=== PATIENT | female | born 1960 | race Caucasian/White ===

== ENCOUNTER → 2018-12-27 | Emergency (ER) | payer OTHER ==
[~2018-12-27] VITALS: Ht 170.2 cm; Wt 63.5 kg
[~2018-12-27] MED LIST: ALENDRONATE SOD70 MG PO; ASPIR 8181 MG PO; LOSARTAN POTASS25 MG PO; SIMVASTATIN10 MG PO; TOPROL XL25 M1 PO; XANAX2 MG PO
== END | disposition home or self-care (01) ==
LOC: ER 21:13
DX: I16.0 Hypertensive urgency (principal); I10 Essential (primary) hypertension; F06.4 Anxiety disorder due to known physiological condition